=== PATIENT | female | born 1980 | race Caucasian/White ===

== ENCOUNTER 2017-12-23 15:18 | Emergency (ER) | payer OTHER ==
[2017-12-23 15:26] VITALS: BMI 33.3
[2017-12-23] MEDS ORDERED: morphine CARPU-JECT 2 MG/1 ML DISP.SYRIN IVPUSH ONE (16:06)
[2017-12-23] MEDS ORDERED: SODIUM CHLORIDE 1,000 ML IV STA (16:07)
[2017-12-23] MEDS ORDERED: morphine SULFATE 4 MG/ML VIAL ONE (16:13)
--- NOTE | 2017-12-23 16:18 | PDOC ---
History of Present Illness - General Chief Complaint: Pain, Acute Stated Complaint: ABDOMINAL PAIN Time Seen by Provider: 12/23/17 15:41 History Source: Patient Exam Limitations: No Limitations - History of Present Illness Travel History: No Initial Comments: 12/23/17 16:00 37 y/o female presents the emergency room for evaluation of lower abdominal pain that started today and has increased in severity. Patient states was told by her market development specialist Dr. Godinez she has a large ovarian cyst that requires removal and is pending a preop appointment next month. Patient states also menstruating today which she describes as bright red blood without clots which is consistent with her normal periods. Patient denies fever, chills states did vomit one since onset this morning. Patient has no urinary complaints. Timing/Duration: reports: constant Quality: reports: moderate, cramping Abdominal Pain Onset Location: reports: suprapubic Pain Radiation: reports: no radiation Activities at Onset: reports: none Aggravating Factors: improves with: None Alleviating Factors: improves with: None Past History - Past Medical History Allergies/Adverse Reactions: Allergies Allergy/AdvReac Type Severity Reaction Status Date / Time No Known Allergies Allergy Verified 12/23/17 15:23 Home Medications: Ambulatory Orders Losartan Potassium [Cozaar -] 50 mg PO DAILY 12/23/17 Metformin HCl 500 mg PO HS 12/23/17 Oxycodone HCl/Acetaminophen [Percocet 5-325 mg Tablet] 1 - 2 tab PO Q6H PRN #15 tab MDD 4 12/23/17 - Reproductive History LMP Normal: Yes Polycystic Ovaries: No - Suicide/Smoking/Psychosocial Hx Smoking History: Never smoked Patient Lives Alone: No Lives with/in: spouse/SO Review of Systems - Review of Systems Able to Perform ROS?: Yes Constitutional: No: Symptoms Reported HEENTM: No: Symptoms Reported Respiratory: No: Symptoms reported Cardiac (ROS): No: Symptoms Reported ABD/GI: Yes: Abdominal cramping : Yes: Discharge (vaginal bleeding) Musculoskeletal: No: Symptoms Reported Integumentary: No: Symptoms Reported Neurological: No: Symptoms reported Endocrine: No: Symptoms Reported Hematologic/Lymphatic: No: Symptoms Reported *Physical Exam - Vital Signs Last Vital Signs Temp Pulse Resp BP Pulse Ox 98.4 F 82 19 137/82 100 12/23/17 15:23 12/23/17 15:23 12/23/17 15:23 12/23/17 15:23 12/23/17 15:23 - Physical Exam General Appearance: Yes: Nourished, Appropriately Dressed. No: Apparent Distress HEENT: negative: Pale Conjunctivae Female Pelvic Exam: positive: vaginal bleeding (bright red) Gastrointestinal/Abdominal: positive: Soft, Tenderness (midsuprapubic. mild left or right suprapubic tenderness) ED Treatment Course - LABORATORY CBC & Chemistry Diagram: 12/23/17 16:00 12/23/17 16:00 - RADIOLOGY Radiology Studies Ordered: Category Date Time Status PELVIC / BLADDER US [US] Stat Ultrasound 12/23/17 16:06 Ordered TRANSVAGINAL ULTRASOUND US [US] Stat Ultrasound 12/23/17 16:06 Ordered Medical Decision Making - Medical Decision Making 12/23/17 16:50 Patient with suprapubic pain associated with bleeding over the past day. Patient states is pending a follow-up appointment with Dr. Burgess to discuss removal of ovarian cysts bilaterally. Patient denies nausea or fever or urinary complaints but states started menstrating today which is in normal flow and cycle 12/23/17 17:54 Laboratory Tests 12/23/17 12/23/17 16:00 16:00 WBC 14.1 H Hgb 12.5 Hct 38.5 Neutrophils % 81.0 Potassium 3.2 L Chloride 104 Carbon Dioxide 28 Anion Gap 8 BUN 14 Creatinine 0.5 L Creat Clearance w eGFR > 60 Random Glucose 121 H Calcium 9.1 Total Bilirubin 0.4 AST 16 ALT 24 Alkaline Phosphatase 65 Total Protein 8.1 Albumin 4.0 12/23/17 18:16 Patient states feeling much better Patient ordered for 40 mEq of potassium. His ultrasound shows a normal uterus in size and echogenicity. There is no uterine masses visualized. Endometrium is normal thickness measuring 4.6 mm. There is an incidental small Nabothian cyst. There is a complex cyst in the left ovary containing internal echoes and septation, likely a hemorrhagic cyst. 4-6 week follow-up ultrasound is suggested. Patient will be given copy of ultrasound report to bring with her to Dr. Bynum to discuss plan. Patient also will be discharged home with Percocets for severe pain and to take Motrin 600 mg every 8 hours as needed for moderate pain. 12/23/17 18:20 Urinalysis was not resulted. Patient added for serum and will run the UA presently. 12/23/17 18:34 Laboratory Tests 12/23/17 16:00 Serum , Qual Negative *DC/Admit/Observation/Transfer Diagnosis at time of Disposition: Hemorrhagic cyst of left ovary - Discharge Dispostion Disposition: HOME Condition at time of disposition: Improved - Prescriptions Prescriptions: Oxycodone HCl/Acetaminophen [Percocet 5-325 mg Tablet] 1 - 2 tab PO Q6H PRN #15 tab MDD 4 PRN Reason: Pain - Referrals Referrals: Jamison Downey MD [Primary Care Provider] - Nanci Burgess MD [Staff Physician] - - Patient Instructions Printed Discharge Instructions: DI for Ovarian Cyst Additional Instructions: Please take Motrin 600 mg every 8 hours as needed. Otherwise take Percocet as needed for severe pain. Please follow up with Dr. Burgess of bring copy of ultrasound with you. May return to ED if any given time if your symptoms worsen prior to your follow- up. - Post Discharge Activity
[2017-12-23 16:25] LABS: BASO % 0.2 % (0-2.0); EOS % 3.6 % (0-4.5); HEMATOCRIT 38.5 % (32.4-45.2); HEMOGLOBIN 12.5 GM/dL (10.7-15.3); LYMPH % 10.8 % (8-40); MCHC 32.4 g/dl (32.0-36.0); MEAN CELL VOLUME 83.3 fl (80-96); MEAN PLT VOLUME 7.7 fl (7.5-11.1); MONO % 4.4 % (3.8-10.2); PLATELET COUNT 341 K/MM3 (134-434); RBC 4.62 M/mm3 (3.60-5.2); RDW 15.2 % (11.6-15.6); WHITE BLOOD COUNT 14.1 K/mm3 (4.0-10.0)
[2017-12-23 16:46] LABS: ANION GAP 8 (8-16); BILIRUBIN,TOTAL 0.4 mg/dL (0.2-1.0); BLOOD UREA NITROGEN 14 mg/dL (7-18); CALCIUM 9.1 mg/dL (8.5-10.1); CHLORIDE 104 mmol/L (98-107); CO2 28 mmol/L (21-32); CREATININE 0.5 mg/dL (0.55-1.02); GLUCOSE,RANDOM 121 mg/dL (74-106); POTASSIUM 3.2 mmol/L (3.5-5.1); SGOT/AST 16 U/L (15-37); SGPT/ALT 24 U/L (12-78); SODIUM 140 mmol/L (136-145); TOT PROT 8.1 g/dl (6.4-8.2)
[2017-12-23 16:47] LABS: ALK PHOS 65 U/L (45-117)
[2017-12-23] MEDS ORDERED: POTASSIUM CHLORIDE TABS 20 MEQ TABLET.ER (FP) PO ONE ×2 (17:53→18:00)
[2017-12-23 18:41] LABS: URINE APPEARANCE SLCLOUDY; URINE BILIRUBIN NEGATIVE (<2.0 mg/dL); URINE COLOR YELLOW; URINE GLUCOSE (UA) NEGATIVE (NEGATIVE); URINE KETONE NEGATIVE (NEGATIVE); URINE LEUK ESTERASE TRACE (NEGATIVE); URINE NITRITE NEGATIVE (NEGATIVE); URINE UROBILINOGEN NEGATIVE mg/dL (0.2-1.0)
[2017-12-23 18:42] LABS: URINE PROTEIN 1+ (NEGATIVE)
[2017-12-23 18:45] LABS: EPI CELLS RARE /HPF (FEW); URINE MUCUS MODERATE
[2017-12-23] MEDS ORDERED: SODIUM CHLORIDE 0.9% 1000 ML INFUS.BAG IV ONE (18:54)
[2017-12-23] MEDS ORDERED: ACETAMINOPHEN 1000 MG/100 ML VIAL (NON FORMULARY) IVPB ONE (18:54)
[2017-12-23 18:56] VITALS: BP 162/86; PULSE 111; TEMP 98.2
--- NOTE | 2017-12-23 18:56 | PDOC ---
*Physical Exam - Vital Signs Last Vital Signs Temp Pulse Resp BP Pulse Ox 98.4 F 82 19 137/82 100 12/23/17 15:23 12/23/17 15:23 12/23/17 15:23 12/23/17 15:23 12/23/17 15:23 ED Treatment Course - LABORATORY CBC & Chemistry Diagram: 12/23/17 16:00 12/23/17 16:00 - ADDITIONAL ORDERS Additional order review: Laboratory Results 12/23/17 12/23/17 12/23/17 Unknown 16:00 16:00 Sodium 140 Potassium 3.2 L Chloride 104 Carbon Dioxide 28 Anion Gap 8 BUN 14 Creatinine 0.5 L Creat Clearance w eGFR > 60 Random Glucose 121 H Calcium 9.1 Total Bilirubin 0.4 AST 16 ALT 24 Alkaline Phosphatase 65 Total Protein 8.1 Albumin 4.0 Serum , Qual Negative Urine Color Yellow Urine Appearance Slcloudy Urine pH 7.0 Ur Specific [place] 1.023 Urine Protein 1+ H Urine Glucose (UA) Negative Urine Ketones Negative Urine Blood 3+ H Urine Nitrite Negative Urine Bilirubin Negative Urine Urobilinogen Negative Ur Leukocyte Esterase Trace Urine WBC (Auto) 64 Urine RBC (Auto) 1162 Ur Epithelial Cells Rare Urine Mucus Moderate 12/23/17 16:00 RBC 4.62 MCV 83.3 MCHC 32.4 RDW 15.2 MPV 7.7 Neutrophils % 81.0 Lymphocytes % 10.8 Monocytes % 4.4 Eosinophils % 3.6 Basophils % 0.2 - RADIOLOGY Radiology Studies Ordered: Category Date Time Status ABDOMEN & PELVIS CT WITH CONTR [CT] Stat CT Scan 12/23/17 18:54 Ordered - Medications Given in the ED: ED Medications Discontinued Medications Generic Name Dose Route Start Last Admin Trade Name Freq PRN Reason Stop Dose Admin Sodium Chloride 1,000 mls @ 1,000 mls/hr 12/23/17 16:07 12/23/17 16:15 Normal Saline - IV 12/23/17 17:06 1,000 mls/hr ASDIR STA Administration Morphine Sulfate 4 mg 12/23/17 16:06 12/23/17 16:15 Morphine Injection - IVPUSH 12/23/17 16:07 4 mg ONCE ONE Administration Potassium Chloride 40 meq 12/23/17 17:53 12/23/17 18:00 K-Dur - PO 12/23/17 17:54 40 meq ONCE ONE Administration Medical Decision Making - Medical Decision Making 12/23/17 18:56 Called to bedside to reevaluate patient. Patient noted to be tachycardic to 118. Laboratory analysis reviewed given white blood cell count of 14.1 positive UA with 64 white blood cells decision made to replace IV order a CT urine culture IV fluids IV Tylenol observe and reassess [address] Escoto to follow-up remainder of care and dispel. *DC/Admit/Observation/Transfer Diagnosis at time of Disposition: Hemorrhagic cyst of left ovary - Discharge Dispostion Disposition: HOME Condition at time of disposition: Improved - Prescriptions Prescriptions: Oxycodone HCl/Acetaminophen [Percocet 5-325 mg Tablet] 1 - 2 tab PO Q6H PRN #15 tab MDD 4 PRN Reason: Pain - Referrals Referrals: Nanci Burgess MD [Staff Physician] - Jamison Downey MD [Primary Care Provider] - - Patient Instructions Printed Discharge Instructions: DI for Ovarian Cyst Additional Instructions: Please take Motrin 600 mg every 8 hours as needed. Otherwise take Percocet as needed for severe pain. Please follow up with Dr. Burgess of bring copy of ultrasound with you. May return to ED if any given time if your symptoms worsen prior to your follow- up. - Post Discharge Activity
[2017-12-23] MEDS ORDERED: ACETAMINOPHEN INJECTION 100 ML IVPB ONE (18:58)
--- NOTE | 2017-12-23 19:44 | PDOC ---
*Physical Exam - Vital Signs Last Vital Signs Temp Pulse Resp BP Pulse Ox 98.2 F 111 H 16 162/86 100 12/23/17 18:55 12/23/17 18:55 12/23/17 18:55 12/23/17 18:55 12/23/17 18:55 ED Treatment Course - LABORATORY CBC & Chemistry Diagram: 12/23/17 16:00 12/23/17 16:00 - ADDITIONAL ORDERS Additional order review: Laboratory Results 12/23/17 12/23/17 12/23/17 Unknown 16:00 16:00 Sodium 140 Potassium 3.2 L Chloride 104 Carbon Dioxide 28 Anion Gap 8 BUN 14 Creatinine 0.5 L Creat Clearance w eGFR > 60 Random Glucose 121 H Calcium 9.1 Total Bilirubin 0.4 AST 16 ALT 24 Alkaline Phosphatase 65 Total Protein 8.1 Albumin 4.0 Serum , Qual Negative Urine Color Yellow Urine Appearance Slcloudy Urine pH 7.0 Ur Specific [place] 1.023 Urine Protein 1+ H Urine Glucose (UA) Negative Urine Ketones Negative Urine Blood 3+ H Urine Nitrite Negative Urine Bilirubin Negative Urine Urobilinogen Negative Ur Leukocyte Esterase Trace Urine WBC (Auto) 64 Urine RBC (Auto) 1162 Ur Epithelial Cells Rare Urine Mucus Moderate 12/23/17 16:00 RBC 4.62 MCV 83.3 MCHC 32.4 RDW 15.2 MPV 7.7 Neutrophils % 81.0 Lymphocytes % 10.8 Monocytes % 4.4 Eosinophils % 3.6 Basophils % 0.2 - Medications Given in the ED: ED Medications Discontinued Medications Generic Name Dose Route Start Last Admin Trade Name Freq PRN Reason Stop Dose Admin Acetaminophen 1,000 mg 12/23/17 18:54 12/23/17 19:28 Ofirmev Injection - IVPB 12/23/17 18:55 1,000 mg ONCE ONE Administration Sodium Chloride 1,000 mls @ 1,000 mls/hr 12/23/17 16:07 12/23/17 16:15 Normal Saline - IV 12/23/17 17:06 1,000 mls/hr ASDIR STA Administration Morphine Sulfate 4 mg 12/23/17 16:06 12/23/17 16:15 Morphine Injection - IVPUSH 12/23/17 16:07 4 mg ONCE ONE Administration Potassium Chloride 40 meq 12/23/17 17:53 12/23/17 18:00 K-Dur - PO 12/23/17 17:54 40 meq ONCE ONE Administration Sodium Chloride 1,000 ml 12/23/17 18:54 12/23/17 19:28 Normal Saline - IV 12/23/17 18:55 1,000 ml ONCE ONE Administration Medical Decision Making - Medical Decision Making 12/23/17 19:41 Vital Signs Temp Pulse Resp BP Pulse Ox 98.2 F 111 H 16 162/86 100 12/23/17 18:55 12/23/17 18:55 12/23/17 18:55 12/23/17 18:55 12/23/17 18:55 I had re-evaluated the patient. The patient does have RLQ pain. However, pt noted with ovarian cysts, which the patient does have. She is scheduled with the women to women's clinic to have an ovarian cyst removal. Initially, I was signed out for CT abdomen and pelvis to r/o appendicitis. However, the patient reported that she had an identical incident 3 months ago where she went to [facility]. She had an ultrasound and CT abdomen and pelvis. No appendicitis at this time. Ultrasound showed ovarian cysts. The patient again states that this is the same exact scenario. She does NOT wish to have another CT scan of abdomen and pelvis as she is concerned about radiation and costs. The patient does seem very reliable. And given that this is the same exact scenario (despite WBC 14), will discharge patient with strict return precautions. The patient states that she will follow up with her pot maker. Will cancel CT abdomen and pelvis and have the patient go home. *DC/Admit/Observation/Transfer Diagnosis at time of Disposition: Hemorrhagic cyst of left ovary - Discharge Dispostion Disposition: HOME Condition at time of disposition: Improved - Prescriptions Prescriptions: Oxycodone HCl/Acetaminophen [Percocet 5-325 mg Tablet] 1 - 2 tab PO Q6H PRN #15 tab MDD 4 PRN Reason: Pain - Referrals Referrals: Nanci Burgess MD [Staff Physician] - Jamison Downey MD [Primary Care Provider] - - Patient Instructions Printed Discharge Instructions: DI for Ovarian Cyst Additional Instructions: Please take Motrin 600 mg every 8 hours as needed. Otherwise take Percocet as needed for severe pain. Please follow up with Dr. Burgess of bring copy of ultrasound with you. May return to ED if any given time if your symptoms worsen prior to your follow- up. - Post Discharge Activity
== END 2017-12-23 19:59 | disposition home or self-care (01) ==
LOC: JER 15:18
PROC: 3E0337Z Introduction of Electrolytic and Water Balance Substance into Peripheral Vein, Percutaneous Approach (ICD-10-PCS; principal; 2017-12-23)
PROC: 3E033NZ Introduction of Analgesics, Hypnotics, Sedatives into Peripheral Vein, Percutaneous Approach (ICD-10-PCS; 2017-12-23)
PROC: 3E033NZ Introduction of Analgesics, Hypnotics, Sedatives into Peripheral Vein, Percutaneous Approach (ICD-10-PCS; 2017-12-23)
DX: N83.202 Unspecified ovarian cyst, left side (principal); E87.6 Hypokalemia
CPT/HCPCS: 36415; 76830-TC; 76856-TC; 80053; 81003; 81015; 84703; 85025; 96361; 96374; 96375; 99283-25; J0131; J7030

== ENCOUNTER 2018-01-14 05:20 | Day surgery (SDC) | payer OTHER ==
[2018-01-10 19:18] VITALS: BMI 35.1
[2018-01-14] MEDS ORDERED: IBUPROFEN 600 MG TABLET (FP) PO PRN (07:20)
[2018-01-14] MEDS ORDERED: ACETAMINOPHEN 325 MG TABLET (FP) PO PRN (07:20)
[2018-01-14] MEDS ORDERED: IBUPROFEN 800 MG/8 ML IJ IVPB PRN (07:20)
--- NOTE | 2018-01-14 07:20 | HP ---
History & Physical Update - History History: No Change - Physical Physical: No Change - Assessment Assessment: No Change - Plan Plan: No Change (No change in HP from 01/08/18)
[2018-01-14] MEDS ORDERED: LACTATED RINGERS SOLUTION 1,000 ML IV SCH ×2 (07:30→09:45)
[2018-01-14] MEDS ORDERED: SUCCINYLCHOLINE CHLORIDE 200 MG/10 ML VIAL ONE (07:51)
[2018-01-14] MEDS ORDERED: PROPOFOL 20 ML ONE (07:51)
[2018-01-14] MEDS ORDERED: MIDAZOLAM HCL 2 MG/2 ML SINGLE DOSE VIAL ONE (07:52)
[2018-01-14] MEDS ORDERED: ROCURONIUM BROMIDE 50 MG/5 ML VIAL ONE (07:52)
[2018-01-14] MEDS ORDERED: LIDOCAINE HCL/PF 2% SDV 5ML VIAL ONE (08:19)
[2018-01-14] MEDS ORDERED: DEXAMETHASONE SOD PHOSPHATE 4 MG/1 ML VIAL ONE (08:25)
[2018-01-14] MEDS ORDERED: ceFAZolin SODIUM 1 GM VIAL ONE (08:39)
[2018-01-14] MEDS ORDERED: ceFAZolin SODIUM 1 GM VIAL IVPB ONE (08:40)
[2018-01-14] MEDS ORDERED: KETOROLAC TROMETHAMINE 30 MG/1 ML VIAL ONE (09:04)
[2018-01-14] MEDS ORDERED: NEOSTIGMINE METHYLSULFATE 0.5 MG/ML - 10 ML MDV ONE (09:06)
[2018-01-14] MEDS ORDERED: GLYCOPYRROLATE 0.2 MG/1 ML VIAL ONE (09:07)
[2018-01-14] MEDS ORDERED: oxyCODONE HCL 5 MG TABLET PO PRN (09:31)
[2018-01-14] MEDS ORDERED: ONDANSETRON 4 MG/2 ML VIAL IVPUSH PRN (09:31)
--- NOTE | 2018-01-14 09:59 | OP ---
Operative Note - Note: Operative Date: 01/14/18 Pre-Operative Diagnosis: Left ovarian cyst Operation: laparoscopic lysis of adhesions, right ovarian cystectomy Post-Operative Diagnosis: Same as Pre-op Surgeon: Nanci Burgess Event Management Consultant: Connie Kraft Anesthesiologist/LAST MODEL MAKER: Veronica Mcguire Anesthesia: General Specimens Removed: right ovarian cyst Estimated Blood Loss (mls): 15 Drains, Volume Out (mls): 300 (pan) Fluid Volume Replaced (mls): 500 Operative Report Dictated: Yes
--- NOTE | 2018-01-14 10:00 | SURG ---
Surgery Cyber Legal Advisor Note Cyber Legal Advisor: Connie Kraft PA-C Date of Service: 01/14/18 Diagnosis: left ovarian cyst Procedure: laparoscopic lysis of adhesions, right ovarian cystectomy I was present for the entirety of the operative procedure. For further detail, please refer to operative report. Visit type - Case Type Case Type: Scheduled - Emergency Emergency Visit: No - New patient This patient is new to me today: Yes Date on this admission: 01/14/18
[2018-01-14 11:33] VITALS: TEMP 98.2
[2018-01-14 15:59] VITALS: BP 124/68; PULSE 84
--- NOTE | 2018-01-14 18:49 | OP ---
DATE OF OPERATION: 01/14/2018 PREOPERATIVE DIAGNOSES: Ovarian cyst, pelvic pain. OPERATION: Laparoscopic enterolysis and right paraovarian cystectomy. POSTOPERATIVE DIAGNOSIS: Pelvic adhesive disease and bowel adhesions. SURGEON: Nanci Burgess MD BOTTLE CAPPER: ZAIRE Rosales ANESTHESIA: General. ANESTHESIOLOGIST: PROCEDURE: Patient was taken to the operating room, placed in dorsal lithotomy position, prepped and draped in usual sterile fashion. Scott catheter was inserted into the bladder. Timeout was performed in accordance with hospital regulation. A 5-mm umbilical incision was made. Veress needle was inserted into the cavity. Approximately 3-4 L of CO2 was insufflated in the cavity. Veress needle was then removed. A 5-mm trocar was then inserted. Laparoscope and camera were attached. Visualization revealed numerous omental adhesions and scarring of the uterus and the adnexa. Bowel was totally adherent to the posterior aspect of the uterus. Both fallopian tubes noted to have hydrosalpinx and numerous adhesions to the lower abdomen, and 5-mm trocars were inserted. LigaSure was attached, and bowel adhesions were then lysed, and omentum was taken down. A large amount of omentum was seen attached to the anterior abdominal wall, and LigaSure was then used to coagulate and cut the omental adhesions. Dense adhesions were noted and were lysed on the sidewall as well as in the cul-de-sac. Tubes were noted to be hydro. The bowel was severely adherent to the posterior aspect of the uterus. A paraovarian cyst was seen on the right side, which was removed and submitted to Pathology. The left tube was unable to be seen, and decision was made to stop the procedure due to dense adhesions. Patient needed to be informed that needed a bilateral salpingectomy as well as to have an open procedure. CO2 was then removed from the abdomen after irrigation had been done and hemostasis was achieved. Incisions were then closed using 4-0 Biosyn suture. Wound was washed and dressed. Patient tolerated the procedure well. Estimated blood loss was 10 mL. Patient was taken to recovery room in stable condition. Pad count was noted to be normal. Sy CANNON/[id number] [facility]ITALKalie
--- NOTE | 2018-01-15 16:06 | PATH ---
Surgical Pathology Report Patient Name: GONSALO PETE [facility]. Rec. #: [id number] /Age/Gender: 1980 (Age: 37) / F Account: [id number] Location: [facility] SURGICAL Taken: 01/14/2018 Received: 01/14/2018 Reported: 01/15/2018 Physicians: Nanci Burgess M.D. Specimen(s) Received RIGHT PARAOVARIAN CYST Clinical History Ovarian cyst Final Diagnosis RIGHT OVARIAN CYST, REMOVAL: BENIGN CYST LINED BY CUBOID EPITHELIUM. Electronically Signed Brittney Mccarty M.D. Gross Description Received in formalin labeled "right para-ovarian cyst," is a 1.4 x 0.8 x 0.1 cm aggregate of gonzalez soft tissue fragments, possibly consistent with cyst wall. The specimen is entirely submitted in one cassette. DL/01/14/2018 saudi/01/14/2018
== END 2018-01-14 13:35 | disposition home or self-care (01) ==
LOC: JASU-SURG 05:20 → EDUNIT# 10:00 → JASU-SURG 13:35
PROVIDERS: ATTEND Obstetrics & Gynecology
PROC: 0UB04ZZ Excision of Right Ovary, Percutaneous Endoscopic Approach (ICD-10-PCS; principal; 2018-01-14 08:00)
DX: N83.201 Unspecified ovarian cyst, right side (principal); N73.6 Female pelvic peritoneal adhesions (postinfective)
CPT/HCPCS: 82962; 84703; 86850; 86900; 86901; 88304-TC; 94760

== ENCOUNTER 2022-04-13 05:03 | Day surgery (SDC) | payer OTHER ==
[2022-04-10 11:59] VITALS: BMI 34.7
[2022-04-13] MEDS ORDERED: LIDOCAINE 1%/EPI 1:100000 (20 ML MULTI DOSE VIAL) ONE (09:32)
[2022-04-13] MEDS ORDERED: BUPIVACAINE HCL/PF 0.25% (2.5MG/ML) 10 ML VIAL ONE (09:32)
[2022-04-13] MEDS ORDERED: MIDAZOLAM HCL 2 MG/2 ML SINGLE DOSE VIAL ONE (10:23)
[2022-04-13] MEDS ORDERED: PROPOFOL 20 ML ONE (10:40)
[2022-04-13] MEDS ORDERED: ONDANSETRON 4 MG/2 ML VIAL ONE (10:49)
[2022-04-13] MEDS ORDERED: DEXAMETHASONE SOD PHOSPHATE 4 MG/1 ML VIAL ONE (10:49)
[2022-04-13] MEDS ORDERED: LIDOCAINE HCL/PF 2% SDV 5ML VIAL ONE (10:49)
[2022-04-13] MEDS ORDERED: SUCCINYLCHOLINE CHLORIDE 200 MG/10 ML SYRINGE ONE (10:51)
[2022-04-13] MEDS ORDERED: BUPIVACAINE HCL 100 ML ONE (11:19)
[2022-04-13] MEDS ORDERED: ceFAZolin SODIUM 1 GM VIAL IVPB ONE (11:30)
[2022-04-13] MEDS ORDERED: BUPIVACAINE HCL/PF 0.25% (2.5MG/ML) 10 ML VIAL IJ ONE ×2 (11:40)
[2022-04-13] MEDS ORDERED: LIDOCAINE 1%/EPI 1:100000 (20 ML MULTI DOSE VIAL) IJ ONE ×2 (11:40)
[2022-04-13] MEDS ORDERED: LACTATED RINGERS SOLUTION 1,000 ML IV SCH ×2 (12:30→13:30)
[2022-04-13] MEDS ORDERED: MICROFIBRILLAR COLLAGEN 1 GM EACH TP ONE (12:35)
[2022-04-13 13:19] VITALS: TEMP 97.2
[2022-04-13] MEDS ORDERED: oxyCODONE HCL 5 MG TABLET PO PRN ×2 (13:23)
[2022-04-13] MEDS ORDERED: ONDANSETRON 4 MG/2 ML VIAL IVPUSH PRN (13:23)
[2022-04-13] MEDS ORDERED: oxyCODONE HCL 5 MG TABLET ONE (15:33)
[2022-04-13 15:40] VITALS: RESP 20
[2022-04-13 16:35] VITALS: BP 165/92; PULSE 89
== END 2022-04-13 16:06 | disposition home or self-care (01) ==
LOC: JASU-SURG 05:03
PROVIDERS: ATTEND Surgery
PROC: 0GTH0ZZ Resection of Right Thyroid Gland Lobe, Open Approach (ICD-10-PCS; principal; 2022-04-13 10:00)
DX: C73 Malignant neoplasm of thyroid gland (principal); E11.9 Type 2 diabetes mellitus without complications
CPT/HCPCS: 81025; 82962; 86850; 86900; 86901; 88307-TC; 88342-TC; 93005; 93010; 94760